=== PATIENT | male | born 1940 | race Caucasian/White ===

== ENCOUNTER 2019-08-31 14:12 | Emergency (ER) | payer MEDICARE, OTHER ==
[~2019-08-31] VITALS: Ht 182.9 cm; Wt 77.1 kg
== END 2019-08-31 16:13 | disposition home or self-care (01) ==
LOC: ED 14:12
DX: S20.411A Abrasion of right back wall of thorax, initial encounter (principal); Z23 Encounter for immunization; V49.9XXA Car occupant (driver) (passenger) injured in unspecified traffic accident, initial encounter
CPT/HCPCS: 36415; 71045; 72170; 80053; 82150; 82550; 83605; 83690; 85025; 86850; 86900; 86901; 90471; 90715; 99284-25; G0480

== ENCOUNTER 2020-08-29 07:29 | Day surgery (SDC) | payer MEDICARE, OTHER ==
[~2020-08-29] VITALS: Ht 180.3 cm; Wt 74.0 kg
[~2020-08-29 07:29] MED LIST: 8 HOUR650 MG; ADULT ASPIRIN R81 MG; COLACE100 MG; COZAAR50 MG; FLOMAX0.4 MG; LIPITOR10 MG; METOPROLOL TART25 MG; ONE DAILY FOR1 EAC1; VITAMIN B COMP1 EACH; VITAMIN C500 M5; XARELTO20 MG
--- NOTE | 2020-08-29 09:39 | NUR ---
08/29/20 0939 Magda Smith 0912 PT ARRIVED IN PACU NON RESPONSIVE TO NOXIOUS STIMULI WITH OPA IN PLACE. 924 PT REACTIVE. OPA REMOVED. TOP DENTURE AND L HEARING AIDE RETURNED TO PT. 929 FALLS BACK TO SLEEP WHEN NOT STIMULATED.
--- NOTE | 2020-08-29 09:59 | NUR ---
0950: PT ARRIVES TO UNIT VIA STRETCHER FROM PACU. PT ALERT AND ORIENTED. DENIES PAIN AND NAUSEA. VSS, RESP EVEN AND UNLABORED. SCDS IN PLACE. ICE WATER AND SNACK PROVIDED. NO NEEDS VOICED, CALL LIGHT WITHIN REACH 1000: TC PLACED TO AND UPDATE PROVIDED. TO RETURN TO HOSPITAL IN ONE HOUR.
--- NOTE | 2020-08-29 10:23 | NUR ---
CONNECTED WITH PT AND THEY ENTERED UNIT. GAVE DIRECTIONS, ALSO GAVE OUTLINE FOR TODAY. PT LIVES IN [place], [place]OVE LAST NIGHT. GAVE BLESSING AND WILL FOLLOW NEEDED
--- NOTE | 2020-08-29 11:01 | NUR ---
1050: PT WATCHES TV COMFORTABLY IN STRETCHER. VSS, RESP EVEN AND UNLABORED. NO PHYSICAL S/S OF DISTRESS AT THIS TIME. DENIES PAIN AND NAUSEA. DURAN ICE WATER AND SNACK WELL. IV CONVERTED TO SL AND PT DANGLES AT THE EDGE OF BED. DURAN WELL, DENIES DIZZINESS AND SOB. AMBULATES TO BR WITH STAND BY ASSISTANCE FROM THIS RN FOR FIRST SUCCESSFUL POSTOP VOID. AMBULATES BACK TO ROOM 12, STEADY GAIT. PT TO DRESS FOR D/C, DENIES NEED FOR ASSISTANCE AT THIS TIME. CALL LIGHT WITHIN REACH
--- NOTE | 2020-08-29 11:17 | NUR ---
1115: SL D/C'D WITH CATH TIP INTACT AND PRESSURE APPLIED TO SITE. PT WAITS FOR TO ARRIVE TO GO OVER D/C INSTRUCTIONS
--- NOTE | 2020-08-29 12:09 | NUR ---
1115: ARRIVES AT THE BEDSIDE. D/C INSTRUCTIONS PROVIDED AND DISCUSSED ORDERED. PATIENT AND VOICE UNDERSTANDING AND DENY QUESTIONS AND CONCERNS AT THIS TIME. 1135: PT WHEELED OFF OF UNIT BY THIS RN. TRANSFERS INTO VEHICLE INDEPENDENTLY. RESP EVEN AND UNLABORED, NO PHYSICAL S/S OF DISTRESS AT THIS TIME
--- NOTE | 2020-09-05 10:41 | OR ---
[facility] [address], [place] [address] Signed DATE OF OPERATION: 08/29/2020 SURGEON: Moses Buckner MD PREOPERATIVE DIAGNOSIS: Hearing loss due to serious otitis media, right ear. POSTOPERATIVE DIAGNOSIS: Hearing loss due to serious otitis media, right ear. PROCEDURE: Right myringotomy and ventilation tube insertion with a T-tube. ANESTHESIA: General, LMA. MACHINE GUIDE BASE WINDER: Jerry. PREOPERATIVE HISTORY: Mr. Tellez is an 80-year-old man with hearing loss, right ear worsened recently from his baseline chronic hearing loss due to serous otitis media. He has had fluid identified in the office and audiogram in temps have shown a conductive hearing loss with flat tympanogram on the right. Left ear is baseline presbycusis. He is taken to the operating room for the above-mentioned procedures. OPERATIVE PROCEDURE AND FINDINGS: After informed consent, the patient was taken to the operating room, placed in the supine position, where general LMA anesthesia was induced. The patient and procedure were verified. The patient was repositioned. Right ear was examined with operating microscope. Eardrum was dull, retracted with a patel middle ear effusion. Anterior-inferior radial myringotomy was made. Effusion suctioned from the middle ear space. T-Tube placed in the myringotomy site. Ofloxacin ophthalmic drops applied to the ear canal, cotton ball to the meatus. The patient tolerated the procedure well, was awakened, extubated, transported to recovery room in good condition. No complications. BLOOD LOSS: Minimal. SPECIMEN: Electronically Signed By: MOSES BUCKNER MD 09/05/20 1041 PATIENT NAME: MARVIN TELLEZ OPERATIVE REPORT DATE OF : 36 REPORT #: [id number] PHYSICIAN: MOSES BUCKNER MD PCP: BESSY ANAND MD REPORT IS CONFIDENTIAL AND NOT TO BE RELEASED WITHOUT AUTHORIZATION [facility] [address] [place] [id number] Signed No specimen. DRAINS: No drains. Moses Buckner MD /MODL /[id number] Copies: ~ Electronically Signed By: MOSES BUCKNER MD 09/05/20 1041 PATIENT NAME: MARVIN TELLEZ OPERATIVE REPORT DATE OF : 38 REPORT #: [id number] PHYSICIAN: MOSES BUCKNER MD PCP: BESSY ANAND MD REPORT IS CONFIDENTIAL AND NOT TO BE RELEASED WITHOUT AUTHORIZATION
== END 2020-08-29 11:35 | disposition home or self-care (01) ==
LOC: OPS 07:29 → DS 07:29 → OPS 09:00 → DS 09:00 → OPS 11:35
PROVIDERS: ATTEND Otolaryngology
PROC: 099500Z Drainage of Right Middle Ear with Drainage Device, Open Approach (ICD-10-PCS; principal; 2020-08-29 09:00)
DX: H65.91 Unspecified nonsuppurative otitis media, right ear (principal); H90.71 Mixed conductive and sensorineural hearing loss, unilateral, right ear, with unrestricted hearing on the contralateral side; I25.10 Atherosclerotic heart disease of native coronary artery without angina pectoris; E78.5 Hyperlipidemia, unspecified; N40.0 Benign prostatic hyperplasia without lower urinary tract symptoms; I10 Essential (primary) hypertension
CPT/HCPCS: 00126; J1100; J2001; J2370; J2405; J2704; J7121

== ENCOUNTER 2021-07-09 14:10 | Emergency (ER) | payer OTHER, MEDICARE ==
[~2021-07-09] VITALS: Ht 180.3 cm; Wt 73.9 kg
== END 2021-07-09 15:17 | disposition home or self-care (01) ==
LOC: ED 14:10
DX: S40.011A Contusion of right shoulder, initial encounter (principal); S64.91XA Injury of unspecified nerve at wrist and hand level of right arm, initial encounter; Z87.891 Personal history of nicotine dependence; W08.XXXA Fall from other furniture, initial encounter
CPT/HCPCS: 73030

== ENCOUNTER 2021-07-19 12:29 | Emergency (ER) | payer MEDICARE, OTHER ==
[~2021-07-19] VITALS: Ht 180.3 cm; Wt 73.9 kg
--- OUTSIDE RECORDS SUMMARY | 2021-07-19 12:32 | XMS ---
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 Tarik VISIT COUNT (12 [address] [facility] [address] [place] [address] TOTAL 6 NOTE: Visits indicate total known visits. ED/C VISIT TRACKING (12 MO.) 07/19/2021 12:29 [facility] [place] TYPE: Emergency COMPLAINT: - R ARM PAIN AND NUMBNESS 07/09/2021 14:11 [facility] [place] TYPE: Emergency COMPLAINT: - FALL, R ARM/SHOULDER INJURY DIAGNOSES: - Injury of unspecified nerve at wrist and hand level of right arm, initial encounter - Fall from other furniture, initial encounter - Pain in right shoulder - Contusion of right shoulder, initial encounter - Personal history of nicotine dependence 06/08/2021 10:30 [facility] - [place] TYPE: Emergency DIAGNOSES: - Occlusion and stenosis of unspecified carotid artery - Presence of aortocoronary bypass graft - Personal history of nicotine dependence - 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 - Paroxysmal atrial fibrillation - Hyperlipidemia, unspecified - Anemia, unspecified - 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 - Atherosclerotic heart disease of [place] coronary artery without angina pectoris 04/18/2021 20:55 [facility] [place] TYPE: Emergency COMPLAINT: - Bleeding wound DIAGNOSES: - Paroxysmal atrial fibrillation - Hyperlipidemia, unspecified - Other group home (current) drug therapy - long-term (current) use of anticoagulants - Presence of aortocoronary bypass graft - Allergy status to sulfonamides - Atherosclerotic heart disease of [place] coronary artery without angina pectoris - Personal history of nicotine dependence - Postprocedural hemorrhage of skin and subcutaneous tissue following other procedure 01/25/2021 08:05 [facility] [place] TYPE: Emergency COMPLAINT: - heart DIAGNOSES: - Occlusion and stenosis of unspecified carotid artery - Gastro-esophageal reflux disease without esophagitis - Atherosclerotic heart disease of [place] coronary artery without angina pectoris - long-term (current) use of anticoagulants - Paroxysmal atrial fibrillation - Benign prostatic hyperplasia without lower urinary tract symptoms - Presence of aortocoronary bypass graft - Other group home (current) drug therapy - Hyperlipidemia, unspecified 07/29/2020 05:47 [facility] [place] TYPE: Emergency COMPLAINT: - Rapid HR DIAGNOSES: - Hyperlipidemia, unspecified - Paroxysmal atrial fibrillation - Presence of aortocoronary bypass graft - Gastro-esophageal reflux disease without esophagitis - Occlusion and stenosis of unspecified carotid artery - Atherosclerotic heart disease of [place] coronary artery without angina pectoris - Other group home (current) drug therapy - Benign prostatic hyperplasia without lower urinary tract symptoms INPATIENT VISIT TRACKING (12 MO.) No inpatient visits to display in this time frame [email or web address]
[2021-07-19] MEDS ORDERED: HYDROCODON-ACE1 EA10 PO (12:43)
[2021-07-19] MEDS ORDERED: PREDNISONE20 MG PO (14:35)
== END 2021-07-19 14:55 | disposition home or self-care (01) ==
LOC: ED 12:29
DX: S54.01XA Injury of ulnar nerve at forearm level, right arm, initial encounter (principal); Z87.891 Personal history of nicotine dependence; Z79.82 Long term (current) use of aspirin; Z79.899 Other long term (current) drug therapy; W19.XXXA Unspecified fall, initial encounter; W22.8XXA Striking against or struck by other objects, initial encounter
CPT/HCPCS: 99283; J7512

== ENCOUNTER 2021-09-14 14:32 | Inpatient (IN) | payer MEDICARE, OTHER ==
[~2021-09-14] VITALS: Ht 180.3 cm; Wt 77.0 kg
[~2021-09-14 14:32] MED LIST changes: -8 HOUR650 MG; +8 HOUR650 MG PO; -ADULT ASPIRIN R81 MG; +ADULT ASPIRIN R81 MG PO; -COZAAR50 MG; +COZAAR50 MG PO; -FLOMAX0.4 MG; +FLOMAX0.4 MG PO; +HYDROCODON-ACE1 EA10 PO; -METOPROLOL TART25 MG; +METOPROLOL TART25 MG PO; -ONE DAILY FOR1 EAC1; +ONE DAILY FOR1 EAC1 PO; +PREDNISONE20 MG PO; -VITAMIN B COMP1 EACH; +VITAMIN B COMP1 EACH PO; -VITAMIN C500 M5; +VITAMIN C500 M5 PO; -XARELTO20 MG; +XARELTO20 MG PO
--- NOTE | 2021-09-14 16:30 | NUR ---
PT ARRIVED VIA [facility]. THREE PERSON TRANSFER FROM STRETCHER TO BED. PT ALERT AND ORIENTED BUT DROWSY AT TIME OF ARRIVAL. SPO2 = 95% ON 3 L NC. REPORT RECEIVED FROM RONY ROGERS AND [employer] CREW.
--- NOTE | 2021-09-14 17:15 | NUR ---
INIITIAL INTAKE ASSESSMENT AND HISTORY COMPLETED. PT ALERT AND ORIENTED, AT TIMES HAS DIFFICULTY ANSWERING QUESTIONS ABOUT MEDICAL HISTORY. PT IN AFIB. HR 110-130S. PT ON 3 L NC. PT HAS SEVERE 4+ LOWER EXTREMITY EDEMA AND GENERALIZED EDEMA. LUNGS SOUND DIFFICULT TO AUSCULTATE. CRACKLES AND DIMINISHED IN BILATERAL BASES. BLOOD PRESSURES IN THE 90-[address] BERNAL IN ROOM AT THIS TIME FOR ASSESSMENT. PLAN OF CARE ESTABLISHED.
--- NOTE | 2021-09-14 18:00 | NUR ---
LASIX AND DIGOXIN GIVEN AT THIS TIME. BLOOD SENT TO LAB AND NEW IV INTIATED BY KEN ZABALA.
--- NOTE | 2021-09-14 18:26 | NUR ---
RECEIVED A PHONE CALL FROM DR BERNAL. PLAN ESTABLISHED TO GIVE VITAMIN K, ONE UNIT OF BLOOD, AND OBTAIN A RUQ ULTRASOUND.
--- NOTE | 2021-09-14 19:36 | NUR ---
RECEIVED REPORT FROM DAY SHIFT, STARTED BLOOD. PT TOLERATING WELL. VSS CALL LIGHT WITHIN REACH WILL CONTINUE TO MONITOR.
--- NOTE | 2021-09-14 20:50 | NUR ---
U/S IN ROOM WITH PT.
--- NOTE | 2021-09-14 21:46 | NUR ---
PT BLOOD TRANSFUSION DONE, TOLERATED WELL. DENIES ANY CONCERNS AT THIS TIME. RESP EVEN AND UNLABORED
--- NOTE | 2021-09-15 00:14 | NUR ---
LAB IN PTS ROOM TO DRAW H AND H.
--- NOTE | 2021-09-15 00:46 | NUR ---
INSPECTOR FINAL ASSEMBLY MECHANICAL NOT ABLE TO DRAW LABS. [facility] LABS WAITING ON LAB RESULTS. WILL CALLL WITH RESULTS AND UPDATE ON AFIB.
--- NOTE | 2021-09-15 01:44 | NUR ---
SPOKE WITH , ORDER FOR LOPRESSOR 5MG IV EVERY 6HRS. GIVEN RATE AT THIS TIME 112 BP 92/78 MAP 84. PT REQUESTING JELLO . RESP EVEN AND UNLABORED. DENIES ANY SOB OR RESP DISTRESS. CALL LIGHT WITHIN REACH WILL CONTINUE TO MONITOR
--- NOTE | 2021-09-15 03:29 | NUR ---
PT RESTING IN BED IN NO ACUTE DISTRESS. PT DENIES ANY SOB, NO CHEST PAIN OR PALPATATIONS. PT REMAINS IN AFIB RATE 100-118. BP 100/66 MAP 74, CALL LIGHT WITHIN REACH WILL CONTINUE TO MONITOR.
--- NOTE | 2021-09-15 05:14 | NUR ---
LAB IN PTS ROOM , PT AWAKE WATCHING TV NO S/SX OF ANY DISTRESS NOTED. CALL LIGHT WITHIN REACH WILL CONTINUE TO MONITOR
--- NOTE | 2021-09-15 06:21 | NUR ---
PT COMPLAINING OF PAIN TO RT ARM. PER PT HE HAS HAD THIS PAIN FOR A SEVERAL MONTHS MEDICATED WITH PRN PAIN MEDS GIVEN. WRAPPED ARM WITH A WARM BLANKET. WILL ADDRESS WITH MD IF PAIN CONTINUES.
--- NOTE | 2021-09-15 06:30 | NUR ---
CALLED MD TO INFORM OF PTS PAIN TO RT ARM. ORDER FOR PO PAIN MEDS. UPDATED MD ON PTS LABS AND RATE. PER MD WILL READJUST PO CARDIAC MEDS. WILL REPOSITION PT AND MEDICATE WITH PRN PAIN MEDS
--- NOTE | 2021-09-15 06:40 | NUR ---
PT CONTINUES TO C/O PAIN. MEDICATED WITH PRN OXY AND REPOSITIONED PT. CALL LIGHT WITH IN REACH WILL CONTINUE TO MONITOR
--- NOTE | 2021-09-15 07:38 | NUR ---
REPORT RECEIVED FROM KEN BELTRE. PT RESTING IN BED WITH EYES CLOSED. RESPIRATIONS EVEN AND UNLABORED. HEART RATE 90'S-110'S. OXYGEN SATURATIONS 90-91% ON 3L O2 BY NC. HEAD OF BED ELEVATED TO 25 DEGREES. BED RAILS UP. CALL LIGHT WITHIN REACH. PT ALLOWED TO REST.
--- NOTE | 2021-09-15 08:26 | NUR ---
MORNING ASSESSMENT AND MEDICAITON DUE. PT CONTINUES RESTING IN BED WITH EYES CLOSED. OXYGEN SATURATION AT 90% ON 3L O2 BY NC. HEAD OF BE ELEVATED TO 33 DEGREES WITH OXYGEN SATURATION IMPROVING TO 93% ON 3L O2 BY NC. PT AWAKENS TO VOICE AND LIGHT TOUCH. SPEECH SLURRED. PT REPORTS HE FEELS "REALLY SLEEPY." PT REPORTS 4/10 PAIN IN RIGHT ARM AND HAND. WHEN ASKED ABOUT HIS PAIN PT STATES "IT'S MUCH BETTER." IVS ASSESSED, WNL. NO S/S OF PHLEBITIS NOTED. BOTH LUMENS OF RIGHT AC IV SITE FLUSHED WITH 5ML NS. ALCOHOL CAPS APPLIED TO ALL CALVES. PT ORIENTED TO PLACE AND DATE BUT IS UNABLE TO RECALL WHY HE IS AT THE HOSPITAL, FALLING ASLEEP BETWEEN CARES AND QUESTIONS. PIN POINT PUPILS NOTED. FACIAL SEMETRY EQUAL ON BOTH SIDES. PT REPORTS HE IS UNABLE TO DIRECTOR OF INTERCOLLEGIATE ATHLETICS WITH RIGHT HAND DUE TO PAIN. STRONG DIRECTOR OF INTERCOLLEGIATE ATHLETICS ON LEFT SIDE. PT NOTED TO MOVE BOTH ARMS ABOVE HEAD INDEPENDANTLY. LUNG SOUNDS CLEAR. HEART TONES IRREGULAR WITH HR 90-110'S. BOUNDING HEART TONES HEARD. +4 PITTING EDEMA NOTED IN BILATERAL FEET AND LOWER EXTREMITIES, EDEMA CONTINUES UP THROUGH THIGHS. +2 PITTING DEPENDANT EDEMA NOTED TO ABDOMEN, GLUTEAL AND SACRAL AREAS. +3 PITTING EDEMA NOTED TO LEFT UPPER ARM. GENERALIZED EDMA NOTED TO RIGHT HAND. LEGS ELEVATED. ARMS ELEVATED ON PILLOWS. PT RESPONDS TO TOUCH IN ALL EXREMITIES. BOWEL TONES HEARD. ABDOMEN SOFT AND MILDY DISTENDED. PT DENIES TENDERNESS TO ABDOMEN. 900ML CLEAR YELLOW URINE REMOVED FROM PICHARDO CATHETER. SMALL AMMOUNT OF RED DRAINAGE NOTED AT MEATUS AND CATHETER INCERTION SITE. LEG AND CATEHTER CLEANING PERFORMED PER PROTOCOL. MEDICATION GIVEN. PT ABLE TO TAKE PILL WITH SMALL SIP OF WATER. PT DRIFTS QUICKLY BACK TO SLEEP. HEAD OF BED REMAINS ELEVATED TO 33 DEGREES. BED RAILS UP. CALL LIGHT WITHIN REACH.
--- NOTE | 2021-09-15 09:38 | NUR ---
MEDICATION DUE. THIS RN TO ROOM TO CHECK ON PT. PT CONTINUES RESTING WITH EYES CLOSED. PT AWAKENS TO VOICE AND LIGHT TOUCH. VITAL SIGNS STABLE, BLOOD PRESSURE CONTINUES TO BE 90'S/60'S, MD AWARE. HEART RATE 100-120'S. MEDICATION GIVEN. PT REPOSITIONED TO LEFT SIDE, SUPPORTED WITH PILLOWS. HEEL PROTECTORS APPLIED. PT RESPONDS APPROPRIATLY TO QUESTIONS AND INTERVENTIONS. HEAD OF BED ELEVATED TO 30 DEGREES. BED RAILS UP. CALL LIGHT WITHIN REACH.
--- NOTE | 2021-09-15 10:08 | NUR ---
THIS RN TO ROOM TO CHECK ON PT. PT CONTINUES RESTING WITH EYES CLOSED. RESPIRATIONS EVEN AND UNALBORED. OXGYEN TUBING FOUND OFF OF PT WITH OXGYEN SATURATION OF 88%. TUBING REPLACED AND OXGYEN SATURATION CLIMBS TO 98%. PT WEANED TO 2L O2 BY NC. NO ADDITONAL NEEDS AT THIS TIME. CALL LIGHT WITHIN REACH. BED RAILS UP.
--- NOTE | 2021-09-15 10:58 | NUR ---
THIS RN TO ROOM TO CHECK ON PT. PT REPORTS 10/10 BACK PAIN AND RIGHT ARM PAIN. PT BOOSTED IN BED AND REPOSITIONED TO RIGHT SIDE, SUPPORTED WITH PILLOWS. PT REPORTS FEELING HUNGRY AND READY FOR BREAKFAST. HEAD OF BED ELEVATED TO 44 DEGREES. PT CONTINUES TO CRY OUT "OH, OH" AND REPORT BACK PAIN. PT UNABLE TO TOLERATE LYING ON RIGHT SIDE. PILLOWS REMOVED AND PT LYING IN SEMI FOLWER POSITION, WITH HEAD OF BED AT 25 DEGREES. PT REPORTS "THAT'S BETTER." VITAL SIGNS STABLE. PT EATS TWO BITS OF BREAKFAST AND THEN STATES "OK, I'M DONE." PT RETURNES TO RESTING WITH EYES CLOSED. RESPIRATIONS EVEN AND UNLABORED. BED RAILS UP. CALL LIGHT WITHIN REACH.
--- NOTE | 2021-09-15 12:14 | NUR ---
NOON ASSESSMENT AND MEDICATION DUE. DR. BERNAL TO BEDSIDE FOR ROUNDS. NEW ORDERS PLACED. PT CONFUSED AT TIMES. DOES NOT REMEMBER TALKING WITH DR BERNAL 10 MINUTES LATER. PT IS ABLE TO STATE CORRECTLY WHERE HE IS AT, THE DATE AND TIME OF DAY. PT DISORIENTED TO EVENTS AND REASONS FOR HOSPITAL STAY. PT FOLLOWS DIRECTIONS. PT REPORTS 5/10 PAIN IN LOWER BACK AND RIGHT ARM. PT REQUESTS A PAIN PILL. LIDOCANE PATCH APPLIED. PAIN MEDICATIONS GIVEN (SEE MAR) IN ANTICIPATION OF CT SCAN. PT DROWSY. PUPLIS NOW 2MM EQUAL AND REACTIVE TO LIGHT. WEAK MILLER KILN DRIED SALT STRENGTH REMAINS IN RIGHT HAND/ARM. PT REPORTS WEAKNESS IN LEGS. LUNG SOUNDS REMAIN CLEAR TO DEMINISHED. PT REMAINS ON 3L O2 BY NC WITH OXGYEN SATURATIONS 90-94%. NO COUGH NOTED. PT SWALLOWS JUICE/CONTRAST WITH NO COUGHING, CHOAKING OR THROAT CLEARING. AFIB RYTHEM CONTINUES WITH HR 90-120'S. EDEMA CONTINUES, UNCHANGED. ARMS AND LEGS ELEVATED. BOWEL TONES HYPOACTIVE. ABDOMEN SOFT AND NONTENDER. ADDITIONAL 850ML YELLOW URINE REMOVED FROM CATHETER BAG. NO ADDITONAL RED DRAINAGE NOTED AT MEATUS OR ARROUND CATHETER INCERTION SITE. NO ADDITIONAL NEEDS AT THIS TIME. CALL LIGHT WITHIN REACH. BED RAILS UP. HEAD OF BED ELEVATED TO 30 DEGREES.
--- NOTE | 2021-09-15 12:47 | NUR ---
IMAGING CALLED AND, TECHNITIAN, STATES PT WILL NEED AN ADDITIONAL 15ML ORAL CONTRAST AT 1315 PRIOR TO SCAN AT 1415. ORDER PLACED.
--- NOTE | 2021-09-15 13:08 | NUR ---
MEDICATION DUE. RIGHT AC IV ASSESSED, NO S/S OF PHLEBITIS NOTED. BLOOD RETURN NOTED. VANCO STARTED (SEE MAR), INFUSING THROUGH LEFT AC IV SITE. PT RESTING WITH EYES CLOSED. PT AWAKENS TO VOICE AND LIGHT TOUCH. PT TAKES SIPS OF JUICE WITH CONTRAST AND FALLS QUICKLY BACK TO SLEEP. PT REPORTS HUNGER FOR LUNCH BUT IS UNABLE TO STAY AWAKE LONG ENOUGH TO TAKE A BITE OF FOOD. VITALS SIGNS STABLE. HEART RATE REMAINS IN THE 90-120'S. NO ADDITONAL NEEDS AT THIS TIME. CALL LIGHT WITHIN REACH. BED RAILS UP.
--- NOTE | 2021-09-15 14:45 | NUR ---
PTS BHAKTI ARRIVED TO BEDSIDE, BHAKTI UPDATED ON PLAN OF CARE AND STATES HER QUESTIONS HAVE BEEN ANSWERED. PT REMAINS AT CT SCAN, AWAITING PTS' RETURN.
--- NOTE | 2021-09-15 15:22 | NUR ---
PATIENT TRANSPORTED TO CT. TOLERATED CT SCAN MODERATELY WELL BUT EXPRESSED DISCOMFORT DUE TO POSITIONING ON THE CT TABLE. FULL LINEN CHANGE OF BED AT THIS TIME. PATIENT RETURNED TO ROOM AND TURNED TO LEFT SIDE. AT THE BEDSIDE.
--- NOTE | 2021-09-15 15:41 | NUR ---
AFTERNOON ASSESSMENT AND MEDICATION DUE. PT HAS RETURNED FROM CT SCAN. PT RESTING IN BED, LINES CHANGED WHILE PT WAS AT CT SCAN. PT POSITIONED ON LEFT SIDE, SUPPORTED WITH PILLOWS. PT VERY DROWSY, DOES NOT KEEP EYES OPEN DURING ASSESSMENT. PT ANSWERS QUESTIONS CONCERNING WHERE HE IS, MONTH AND YEAR. PT REPORTS 10/10 PAIN AND THEN IMMIDATLY FALLS BACK TO SLEEP. PT REMAINS ON 3L O2 BY PA WITH OXGYEN SATURATION OF 93% AND RR OF 15-18. PTS AT BEDSIDE AND CONTINUES TO BE UPDATED ON PLAN OF CARE. PT SATES THEY HAVE BEEN SEEKING MEDICAL ATTENTION "FOR MONTHS." PTS BHAKTI STATES PTS HEALTH STARTED TO DECLINE ARROUND THE END OF JUNE AFTER A FALL "AROUND THE June." PT VERY INTOLERANT OF ANY MOVEMENT OR POSITION CHANGE. ENEMA NOT DONE AT THIS TIME RELATED TO PTS PAIN AND INABILITY TO TOLEARTE POSITION CHANGES. IV VANCO COMPLETE. IV SALINE LOCKED AT THIS TIME. PTS SPEECH GARBLED, PTS HAS DIFFICULTY UNDERSTANDING PT. EDEMA CONTINUES THROUGHOUT LEGS AND DEPENDANT AREAS WELL UPPER ARMS AND RIGHT HAND, UNCHANGED. PT REMAINS IN AFIB RYTHEM WITH HR NOW IN THE 80-110. ADDITONAL 900ML OF URINE REMOVED FROM PICHARDO CATHETER. NO NEW RED DRAINAGE NOTED FROM MEATUS. ABDOMEN SOFT AND NON TENDER. ACTIVE BOWEL TONES HEARD, MILD DISTENTION NOTED. PT DECLINES REPOSITIOINING STATING "I'M TIRED OF YOU GUYS HURTING ME AND CUTTING ME TO PIECES." PT ALLOWED TO REMAIN IN LEFT SIDE LYING POSITION.
--- NOTE | 2021-09-15 16:52 | NUR ---
SOAP SUDDS WATER ENEMA GIVEN TO PT PER PROTOCOL. PT ABLE TO HOLD IN ~500ML FOR ~15 MINUTES. PT TOELRATED PROCEEDURE WELL. PT HAS ~100ML BROWN FLUID RETURN. ALYCE CARE DONE. DEPENDS CHANGED. PTS STATES PT WAS ALSO GIVEN AN ENEMA IN [place] AND "THEY COULDN'T BELIEVE WHAT CAME OUT. IT WAS A LOT OF POOP." PT REPOSITIONED TO SUPINE WITH HEAD OF BED ELEVATED TO 25 DEGREES. PT UNABLE TO STAY AWAKE LONG ENOUGH TO EAT DINNER. CLEAR ENSURE PROVIDED. HEEL PROTETORS IN PLACE. BED RAILS UP. CALL LIGHT WITHIN REACH.
--- NOTE | 2021-09-15 17:40 | NUR ---
THIS RN TO ROOM TO CHECK ON PT. PT RESTING IN BED WITH EYES CLOSED. PT OPENS EYES TO MOVEMENT IN THE ROOM. CHOCOLATE ENSURE MILKSHAKE PROVIDED AND PT ASSISTED WITH DRINKING MILKSHAKE. KYLEE SANDHU EMPITED OF 950ML CLEAR YELLOW URINE. PT REPORTS BACK PAIN HAS IMPROVED NOW AT 7/10 AND. PT DECLINES REPOSITIONING AND STATES "I'M JUST FINE LIKE THIS." PTS REMAINS AT BEDSIDE. NO ADDITONAL REQUESTS OR COMPLAINTS. CALL LIGHT WITHIN REACH. BED RAILS UP.
--- NOTE | 2021-09-15 18:14 | NUR ---
PT FOR AFIB RVR AND MULTIPLE OTHER COMPLAINTS/CONDITIONS. PT REMAINS ON BED REST THIS SHIFT. PT VERY DROWSY THROUGHOUT SHIFT AND UNABLE TO DO MUCH MOVEMENT WITHOUT SEVERE PAIN. PT REPOSITIONED ABLE. PT NOT EATING THIS SHIFT, FALLS ASLEEP QUICKLY AND DOESN'T HAVE THE ENERGY TO EAT. ENSURE MILKSHAKES AND CLEAR ENSURE PROVIDED WHICH PT STATES HE ENJOYS. ADJUSTMENTS MADE TO CARDIAC MEDICATIONS TO CONTROL HEART RATE. HEART RATE REMAINS 80-120'S THROUGHOUT SHIFT IN AFIB RYTHEM. PT REMAINS ON 3L O2 BY NC WITH OXGYEN SATURATIONS IN THE LOW 90'S. IV VANCO STARTED GIVEN URINALASIS RESULTS. MULTIPLE CT SCANS WITH CONTRAST PERFORMED, DISCUSSION ABOUT RESTULTS WITH PT AND FAMILY PENDING. IV LASIX GIVEN, PICHARDO CATHETER IN PLACE, LARGE QUANTITES OF URINE NOTED. SEVERE EDEMA NOTED DEPENDANTLY AND IN ALL EXTREMITIES. WEAKEN MACROECONOMICS PROFESSOR STRENGHT TO RIGHT ARM NOTED. PTS AT BEDSIDE ALL AFTERNOON, PT EXPECTING FAMILY TOMORROW. PT DOES NOT USE CALL LIGHT.
--- NOTE | 2021-09-15 18:33 | NUR ---
THIS RN TO ROOM TO CHECK ON PT. PT REQEUSTS HIS PILLOWS BE ADJUSTED. PILLOWS ADJUSTED. PT REPORTS 6/10 PAIN IN BACK/RIGHT ARM AND NECK AND REQUESTS PAIN MEDICATION, SEE MAR FOR MEDICAITON GIVEN. PTS STATES SHE AND HER DAUGHTER WILL BE HERE IN THE MORNING AT AROUND 1000. PT ASSISTED WITH TAKING SIPS OF ENSURE AND WATER. PT DENIES ADDITIONAL REQUESTS OR COMPLAINTS. CALL LIGHT WIHTIN REACH. BED RAILS UP.
--- NOTE | 2021-09-15 20:00 | NUR ---
RECEIVED REPORT FROM DAY SHIFT RN. PT LAYING IN BED IN NO ACUTE DISTRESS. PT RESTING IN BED. DAY SHIFT NURSE GAVE PRN PAIN MEDS. PT SLEEPY, DR BERNAL , GAVE NEW ORDERS. CALL LIGHT WITHIN REACH WILL CONTINUE TO MONITOR.
--- NOTE | 2021-09-15 23:09 | NUR ---
PT DROWSY BUT EASILY AROUSABLE DENIES ANY CONCERNS. PTS RATE CONTROLED AT THIS TIME. WILL TURN AND MEDICATE WITH PRN PAIN TOLERATED. WILL CONTINUE TO MONITOR
--- NOTE | 2021-09-16 00:12 | NUR ---
REPOSITIONED PT AND CLEANED UP . PT COMPLAINING ABOUT PAIN WITH MOVEMENT. MEDICATED WITH PRN PAIN MEDS. PT RATE 100-120. RESP EVEN AND UNLABORED . CALL LIGHT WITHN REACH WILL CONTINUE TO MONITOR
--- NOTE | 2021-09-16 02:12 | NUR ---
PT SLEEPING IN BED WIT EYES CLOSED IN NO ACUTE DISTRESS. PT RESP EVEN AND UNLABORED. VSS RATE CONTROLLED AT THIS TIME 90-100. CALL LIGHT WITHIN REACH WILL CONTINUE TO MONITOR.
[2021-09-16] MEDS ORDERED: CARDIZEM CD240 MG PO (03:07)
[2021-09-16] MEDS ORDERED: CYMBALTA30 MG PO (03:07)
[2021-09-16] MEDS ORDERED: PANTOPRAZOLE SO40 MG PO (03:09)
[2021-09-16] MEDS ORDERED: NEURONTIN300 MG PO (04:07)
--- NOTE | 2021-09-16 04:11 | NUR ---
PT SLEEPING IN BED IN NO ACUTRE DISTRESS. PT RESP EVEN AND UNLABORED. RATES REAMINS AT 90-100 AT THIS TIME. TURNING TOLERATED . CALL LIGHT WITHIN REACH WILL CONTINUE TO MONITOR.
--- NOTE | 2021-09-16 07:37 | NUR ---
REPORT RECEIVED FROM KEN BELTRE. PT RESTING IN BED WITH EYES CLOSED. RESPIRAITONS EVEN AND UNLABORED, RR OF 14. OXGYEN SATURATION OF 94% ON 3L O2 BY NC. HEAD OF BED ELEVATD TO 20 DEGREES. BED RAILS UP. CALL LIGHT WITHIN REACH. PT ALLWOED TO REST.
--- NOTE | 2021-09-16 08:30 | NUR ---
BREAKFAST DELIVERED TO PT. PT SITTING UP IN BED WITH HEAD OF BED ELEVATED TO 40 DEGREES FOR BREAKFAST. PT AWAKE AND ALERT AND OREINTED. PT REPORTS 8/10 BACK/NECK AND RIGTH ARM PAIN. SEE MAR FOR MEDIATION GIVEN. LIDOCANE PATCH APPLIED. MORNING MEDICATIONS GIVEN. PT FEEDING SELF. NO ADDITIONAL NEEDS AT THIS TIME. CALL LIGHT WITHIN REACH. BED RAILS UP.
--- NOTE | 2021-09-16 09:00 | NUR ---
MORNING ASSESSMENT DUE. PT FINISHED WITH BREAKFAST. TOELRATED SMALL AMOUNT. CLEAR ENSURE PROVIDED PER PT REQUEST. PT REPORTS BACK/NECK AND RIGHT ARM PAIN CONTINUE AT 8/10. PT REPORTS FEELIGN "VERY TIRED" AND REQUESTS TIME FOR A NAP. PT ORIENTED TO ALL BUT OCCATIONALY CONFUSED ABOUT EVENTS. PT ABLE TO REPEAT BACK INFORMATION AND FOLLOW DIRECTIONS. OPIOID PAIN MEDICATION HELD SO PT CAN REMAIN ALERT AND OREINTED FOR DISCUSSION WITH FAMILY AND MD THIS MORNING. IV LINES ASSESSED, LEFT AC IV SITE FOUND TO BE KINKED, DRESSING REMOVED, LINE STRAIGHTENED. NEW DRESSING APPLIED PER PROTOCOL. IV FLUIDS WELL, NO S/S/ OF PHLBEITIS NOTED. BOTH LUMENS FLUSHED AND SALIEN LOCKED PER PROTOCOL. IV ABX COMPLETE. LEFT FORARM IV ISTE FLUSHED AND SALINE LOCKED PER PROTOCOL, ALOCHOL CAPS APPLIED. NORMAL SWITCH CREW SUPERVISOR STRENGTH NOTED IN LEFT ARM. GROSS MOVEMENT NOTED IN RIGHT ARM. LEGS WEAK. PT ALBE TO MOVE TOES AND BED AT KNEES. SIGNIFICAT INCREASE IN PAIN WITH THESE MOVEMENTS. LUNG SOUNDS CLEAR IN UPPER LOBES, DEMINISED IN BASES. PT TOELRATING 3L O2 BY NC WITH OXGYEN SATURATIONS ABOVE 94%. HEART RATE REMAINS IN AFIB RYTHEM ON MONITOR WITH RATE OF 80-110. EDEMA TO LOWER LEGS IMPROVING, NOW +2. CONTINUES UP THROUGH UPPER LEGS, SACRAM AND OTHER DEPENDANT AREAS. LEFT UPPER ARM CONTINUES TO HAVE +3 PITTING EDEMA. RIGHT HAND CONTINUES TO HAV GENERALIZED SWELLING, ALSO PRESENT IN RIGHT UPPER ARM. PT RESPONDS TO TOUCH IN ALL EXTREMITIES IMPLYING SENSATION IS INTACT. ABOMDEN SOFT AND NON TENDER. BOWEL TONES ACTIVE. NO BLOOD NOTED FORM MEATUS. CATHETER DRINAING CLEAR YELLOW URINE. PT DRIFTS BACK TO SLEEP DURING CARES. RESTING ON BACK WITH EYES CLOSED. HEAD OF BED ELEVATED TO 20 DEGREES. BED RAILS UP. CALL LIGHT WITHIN REACH.
--- NOTE | 2021-09-16 09:39 | NUR ---
THIS RN TO ROOM TO CHECK ON PT. PT RESTING WITH EYES CLOSE. RESPIRATIONS EVEN AND UNLABORED. RR OF 16 WITH OXGYEN SATURATIONS AT 98% ON 3L O2 BY NC. BED RAILS UP. CALL LIGHT WITHIN REACH PT ALLOWED TO REST.
--- NOTE | 2021-09-16 10:23 | NUR ---
MEDICATION DUE. THIS RN TO ROOM. PT RESTING IN BED, AWAKE AND ALERT. MEDICATION GIVEN. VITAL SIGNS STABLE. FAMILY ARRIVED TO BEDSIDE, AND DAUGHTER. FAMILY UPDATED. DR. BERNAL INFORMED THAT FAMILY HAS ARRIVED. NO ADDIITONAL NEEDS AT THIS TIME. CALL LIGHT WITHIN REACH. BED RAILS UP.
--- NOTE | 2021-09-16 11:05 | NUR ---
THIS RN TO ROOM TO WITH DR. BERNAL FOR ROUNDS. CARE COMFERENCE HELD WITH DR. BERNAL, THIS RN , PTS , PT AND PTS DAUGHTER. PT AND FAMILY VERBALIZE UNDERSTANDING OF CONDITION, DIANOSIS, AND PLAN OF CARE. FAMILY STATES THEIR QUESITONS HAVE BEEN ANSWERED FOR NOW AND THEY WILL CONSIDER THINKING ABOUT FUTURE OPTIONS. PT AND FAMILY ALSO MENTION HOME STRESS TO THIS RN AND MD REGARDING THE RECENT SUICIDE OF PTS SON. FAMILY INVOLVED WITH DISCUSSION AND CARES. CHELITA NICOLE DISCUSSED WITH PT. PT AND FAMILY PROVIDE A COPY OF HIS ADVANCED DIRECTIVE. COPY MADE AND PLACED IN PTS CHART. PT REPORT 6/10 PAIN IN BACK/NECK AND RIGHT ARM. PT DECLINES PAIN MEDICATION AT THIS TIME. PT AND FAMILY GIVEN TIME TO TALK AND DISCUSS INFORMATION. NO ADDTIONAL NEEDS. BED RAILS UP. CALL LIGHT WIHTIN REACH.
--- NOTE | 2021-09-16 12:29 | NUR ---
NOON ASSESSMENT AND MEDICAITON DUE. DIGOXIN DOSE CLARIFIED WITH DR. BERNAL WHO STATES THAT 250MCG DOSE WAS NOT MEANT TO START UNTIL FRIDAY. 125MCG DOES TO BE GIVEN NOW. PHARMACY CALLED AND SCHEDULING, DOSING CLARIFIED. 250MCG DOES HELD, 125MCG DOES GIVEN. PT REPORTS 7/10 PAIN IN BACK/NECK AND RIGHT ARM. PT REQUESTS PAIN MEDICATION, SEE MAR FOR MEDICATION GIVEN. PT DENIES NAUSE. PT WAS ABLE TO TOELRAT ~60% OF LUNCH AND DRANK A FULL CLEAR ENSURE. ADDITIONAL ENSURE PROVIDED. FAMILY DELIVERED A LATTE FOR PT, PT SIPPING ON LATTE, NO ASSISTANCE NEEDED. PT REMAINS ALERT AND ORIENTED TO ALL. ANASTASIIA MOVEMENT ONLY TO RIGHT ARM. LUNGS SOUNDS REMAIN CLAER. HEART REMAINS IN AFIB RYTHEM, HR 90-120'S. EDEMA IMPROVING, NOW +2 IN FEET AND BLE. EDEMA CONTINUES TO GO UP THROUGH ABDOMEN AND DEPENDANT AREAS. PT DECLINES REPOSITOINING REPORTING IT IS TOO PAINFUL. SWELLING IMPROVING TO RIGHT HAND WELL. ASSESSMENT OTHERWISE UNCHANGED. PT VISITING WITH FAMILY, BOOSTED IN BED AND HEAD OF BED ELEVATED TO 38 DEGREES PER PT REQUEST. NO ADDITONAL NEES AT THIS TIME. CALL LIGHT WITHIN REACH. BED RAILS UP.
--- NOTE | 2021-09-16 13:36 | NUR ---
MEDICAITON DUE. THIS RN TO ROOM. PT RESTING WITH EYES CLOSED. RESPRIATIONS EVEN AND UNLABORED. PT TOELRATING 3L O2 BY NC WITH OXGYEN SATURATION ABOVE 94%. IV'S ASSESSED, WNL, NO S/S/ OF PHLEBITIS NOTED. IV ABX STARTED. PT CONTINUES RESTING WITH EYES CLOSED. BED RAILS UP. CALL LIGHT WITHIN REACH. FAMILY AT BEDSIDE.
--- NOTE | 2021-09-16 14:35 | NUR ---
THIS RN TO ROOM TO CHECK ON PT. PT RESTING WITH EYES CLOSED, RESPIRATIONS EVEN AND UNLABORED. PTS FAMILY LEAVING FOR THE AFTERNOON TO RETURN THIS EVENING. PT ALLOWED TO REST. CALL LIGHT WITHIN REACH. BED RAILS UP.
--- NOTE | 2021-09-16 14:55 | NUR ---
IV PUMP ALARMING, VANCO INFUSION COMPLETE. IV ASSESSED, WNL. NO S/S OF PHLEBITIS NOTED. IV FLUSHED AND SALINE LOCKED PER PROTOCOL. ALCOHOL CAP APPLIED. PT CONTINUES RESTING WITH EYES CLOSED. RESPIRATIONS EVEN AND UNLABORED. HEAD OF BED ELEVATED TO 30 DEGREES. BED RAILS UP. CALL LIGHT WITHIN REACH.
--- NOTE | 2021-09-16 15:08 | NUR ---
PT HERE FOR AFIB RVR. PT REMAINS ON BED REST THIS SHIFT, TOO PAINFULL AND WEAK TO GET OUT OF BED. PT TOELRATING 2GM SODIUM DIET WITH MINIMAL APPITITE, ENSURE PROVIDED. HEART RATE 80-120'S THIS SHIFT WITH ADJUSTMENTS TO MEDICATIONS MADE. AFIB RYTHEM CONTINUES. PT REMAINS ON 3L O2 BY OH WITH OXGYEN SATUTRATIONS ABOVE 92%. CARE CONFERENCE HELD WITH PT, PTS AND DAUGHTER THIS SHIFT REGARDING CT SCAN RESULTS AND PLAN OF CARE. PT CONTINUES TO HAVE PAIN, CONTROLED WITH OXYCODONE, TYLENOL AND LIDOCANE PATCH. PICHARDO CATHETER IN PLACE, IV LASIX GIVEN, WITH GOOD RESULTS. PT DECLINES REPOSITIONING THIS SHIFT RELATE TO PAIN. EDEMA IMPROVING. PT AFEBRIAL SO FAR THIS SHIFT. PT DOES NOT USE CALL LIGHT. FAMILY AT BEDSIDE FOR MOST OF SHIFT.
--- NOTE | 2021-09-16 15:38 | NUR ---
THIS RN TO ROOM TO CHECK ON PT. PT CONTINUES RESTING WITH EYES CLOSED. RESPRATIONS EVEN AND UNLABORED. RR 18. HEART RATE 90-110'S. PT ALLOWED TO REST UNDESTURBED. BED RAILS UP. CALL LIGHT WITHIN REACH. HEAD OF BED REMAINS ELEVATED TO 30 DEGREES.
--- NOTE | 2021-09-16 17:00 | NUR ---
AFTERNOON ASSESSMENT AND MEDICATION DUE. PT CONTINUES RESTING IN BED WITH EYES CLOSED. RESPIRATIONS EVEN AND UNLABORED. PT AWAKENS TO VOICE AND LIGHT TOUCH. PT REPORTS FEELING COMFROTABLE BUT ALSO REPORTS 7/10 PAIN. PT REQUESTS A PAIN PILL. SEE MAR FOR MEDICATION GIVEN. PT BOOSTED IN BED AND HEAD OF BED ELEVATED TO 35 DEGREES TO SWALLOW MEDICAITONS. PT DECLIENS DINNER STATING HE WOULD "RATHER SLEEP." PT REMAINS OREINTED TO ALL AND ABLE TO RECALL EVENTS OF TODAY. STRENGTH UNCHANGED. PT CONTINUES TO DECLIEN REPOSITIONING RELATED TO PAIN. PT STATES "I'M JUST COMFORTABLE LIKE THIS." PT REMAINS IN SEMIFOWLER POSITION WITH HEAD OF BE ELEVATED TO 34 DEGREES. LUNG SOUNDS CLEAR. PT REMAINS ON 3L O2 BY NC WITH OXYGEN SATURATIONS ABOVE 94%. CARDIAC MONITORING CONTINUES TO SHOW AFIB RYTHEM WITH HEART RATE 90-110'S. +2-3 PITTING EDEMA REMAINS TO FEET AND BLE. WELL +3 PITTING EDMEA TO LEFT UPPER ARM. GENERALIZED EDMEA TO RIGHT HAND IMPROVING. GENERALIZED DEPENDANT EDEMA CONTINUES AT +2. IV LASIX EFFECTIVE WITH LARGE AMOUNTS OF CLEAR LIGHT YELLOW URINE NOTED IN PICHARDO CATHETER. ABDOMEN REMAINS SOFT AND NONTENDER, BOWEL TONES ACTIVE, MILD DISTENTION CONTINUES. CATHETER CARE DONE. NO ADDITIONAL BLOOD OR DRAINGE NOTED AT MEATUS. PT DRIFTS QUICKLY BACK TO RESTING WITH EYES CLOSED AFTER CARES ARE COMPLETE. WARM BLANKETS PROVIDED. BED RAILS UP. CALL LIGHT WITHIN REACH.
--- NOTE | 2021-09-16 17:46 | NUR ---
THIS RN TO ROOM TO CHECK ON PT. PT CONTINUES RESTING WITH EYES CLOSED, RESPIRATIONS EVEN AND UNLABORED. HEART RATE 90-110. NO ADDITIONAL NEEDS AT THIS TIME. BED RAILS UP. CALL LIGHT WITHIN REACH.
--- NOTE | 2021-09-16 18:21 | NUR ---
PUMP ALARMING, IV CEFEPIME INFUSION AND FLUSH COMPLETE. IV ASSESSED, WNL. NO S/S OF PHLEBITIS NOTED. IV FLUISED AND SALINE LOCKED, ALCOHOL CAP APPLIED. PICHARDO CATEHTER EMPTIED OF 650ML CLEAR YELLOW URINE. PT CONTINUES RESTING WITH EYES CLOSED DURING CARES. RESPIRATIONS EVEN AND UNLABORED. BED RAILS UP. HEAD OF BED ELEVATED TO 36 DEGREES. CALL LIGHT WITHIN REACH.
--- NOTE | 2021-09-16 19:43 | NUR ---
RECEIVED REPORT FROM DAY SHIFT . PT RESTING IN BED IN NO ACUTE DISRTESS. AND DAUGHTER AT BEDSIDE AT THIS TIME. VSS RATE CONTROLED AT 80-90. WILL TURN TOLERATED AND MEDICATED WITH PRN MEDS. CALL LIGT WITHIN REACH WILL CONTINUE TO MONITOR.
--- NOTE | 2021-09-16 23:08 | NUR ---
PT SLEEPING AT THIS TIME. VSS RATES CONTROLLED 90-100. NO S/SX OF ANY DISTRESS NOTED. CALL LIGHT WITHIN REACH WILL CONTINUE TO MONITOR
--- NOTE | 2021-09-17 01:53 | NUR ---
PT LAYING IN BED IN NO ACUTE DISTRESS, PT RESP EVEN AND UNLABORED. VSS, RATE 90-100. CALL LIGHT WITHIN REACH WILL CONTINUE TO MONITOR
--- NOTE | 2021-09-17 03:08 | NUR ---
PT AWAKE WATCHING TV, PT DENIES ANY PAIN AT THIS TIME. REPORTS FEELING COLD, REPOSTITIONED TOLERATED AND COVERED PT UP WOTH WARM BLANKET . TOLERATED PO BETA AMANUEL . CALL LIGHT WITHIN REACH WILL CONTINUE TO MONITOR
--- NOTE | 2021-09-17 04:34 | NUR ---
PT RESTING IN BED IN NO ACUTE DISTRESS . PT RESP EVEN AND UNLABORED. CALL LIGHT, REPORSITIONING TOLERATED. CALL LIGHT WITHIN REACH WILL CONTINUE TO MONITOR.
--- NOTE | 2021-09-17 09:24 | NUR ---
PATIENT RESTING IN BED. DROWSY BUT EASILY ARROUSED. LUNGS CLEAR ON 3L OXYGEN VIA NASAL CANULA. PAIN WITH REPOSITIONING. RATES PAIN 10/10. PRN PAIN MEDS GIVEN. PICHARDO DRAINING YELLOW URINE. IV'S SALINE LOCKED. HRATE IRREGULAR AND AFIB IN THE 100-120'S.
--- NOTE | 2021-09-17 10:24 | NUR ---
TO CCU, SPOKE WITH CALDERON ROGERS. PER RN PATIENT HAS A DIFFICULT TIME ANSWERING QUESTIONS AT THIS TIME. CALDERON ROGERS BELIEVED THAT PATIENTS AND DAUGHTER ARE TO RETURN TODAY FOR CARE CONFERENCE REGARDING FURTHER TREATMENT OF METASTATIC CA. WILL COMPLETE ASSESSMENT AND DISCUSS FURTHER NEEDS WITH FAMILY LATER TODAY.
--- NOTE | 2021-09-17 10:38 | NUR ---
RECVD CALL FROM DR. BERNAL TO DISCUSSED DISCHARGE. DR. BERNAL STATES HE SPOKE WITH THE PATIENT FAMILY YESTERDAY AND WOULD LIKE CASE MANAGEMENT TO CONTACT [facility] FOR BED AVAILABILTY. LEFT MESSAGE WITH GIL IN ADMISSIONS AT [facility] TO CONFIRM BED AVAILABILITY.
--- NOTE | 2021-09-17 10:39 | NUR ---
MED RECORDS REQUESTED FROM [facility] AT THIS TIME.
--- NOTE | 2021-09-17 11:13 | NUR ---
MD ROUNDED. UPDATED ON ELECTORLYTE LEVELS; REPLACEMENT ORDERED.
--- NOTE | 2021-09-17 11:45 | NUR ---
AND DAUGHTER AT BEDSIDE. CASE MANAGEMENT CALLED TO ROOM TO DISCUSS PLAN OF CARE AND TRANSITIONING TO HOSPICE.
--- NOTE | 2021-09-17 11:45 | NUR ---
INTO PATIENTS ROOM, KRISTIAN AND DAUGHTER WILMAN AT THE BEDSIDE. PATIENT RESPONSIVE TO VOICE. DISCUSSED THE CARE CONFERENCE WITH DR. BERNAL ON 09/17/21. KRISTIAN AND WILMAN BOTH AGREE THAT THE PATIENT WOULD PREFER TO PURSUE HOSPICE/COMFORT CARE AT THIS TIME. UNFORTUNATLY KRISTIAN FEELS THAT SHE WOULD BE ABLE TO PROVIDE 24 HOUR CARE FOR THE PATIENT AT HOME SINCE IT HAS BEEN A STRUGGLE FOR HER TO CARE FOR THE PATIENT IN THE RECENT DAYS. I ADVISED FAMILY THAT I WILL REACH OUT TO [facility] TO SEE WHAT OPTIONS ARE AVAILABLE FOR THEM AT THIS TIME. DISCUSSED OPTIONS OF RETIREMENT PLACEMENT. PATIENT AND DAUGHTER ALSO REQUEST HOLDING PAIN MEDICATION THIS AFTERNOON TO ATTEMPT TO DISCUSS THESE DECISIONS WITH THE PATIENT. NOTIFIED RN OF REQUEST. WOULD ALSO LIKE TO DISCUSS CHANGING THE PATIENT ADVANCED DIRECTIVES IN THE FUTURE. WILL CONSULT FURTHER WITH CASE MANAGEMENT TEAM, MD AND OUTSIDE SERVICES TO EXPLORE OPTIONS FOR DISCHARGE. WILL UPDATE PATIENT AND FAMILY SOON INFORMATION IS AVAILABLE.
--- NOTE | 2021-09-17 12:10 | NUR ---
CCU KEN MANCERA REQUESTED I NOT DISTURB PT. HE IS SLEEPING AND SHE WILL CHECK WITH FAMILY AND SEE IF THEY WOULD LIKE CUSTOMER ADVISOR SPECIALIST SVRYAN. WILL FOLLOW
--- NOTE | 2021-09-17 13:30 | NUR ---
ATTEMPTED TO CONTACT GIL AT [facility] VIA CELL PHONE, NO ANSWER.
--- NOTE | 2021-09-17 14:30 | NUR ---
PATIENT RESTING COMFORTABLY IN BED AT THIS TIME WITH HIS AT THE BEDSIDE. CASE MANAGEMENT STAFF ARE WORKING ON PLAN OF CARE WITH TRYING TO ARRANGE DISCHARGE. WILL CONTINUE TO CLOSELY MONITOR.
--- NOTE | 2021-09-17 16:30 | NUR ---
, DAUGHTER, AND HOUSE MOVER HELPER AT BEDSIDE TO DISCUSS PLAN OF CARE AND PLACEMENT.
--- NOTE | 2021-09-17 17:01 | NUR ---
SPOKE WITH GIL FROM [facility], PATIENT COULD BE ACCEPTED INTO THEIR HAND SPRAY OPERATOR CARE PROGRAM ON HOSPICE, BUT WOULD HAVE TO PAY OUT OF POCKET. PAYMENT IS [phone] PER DAY. SPOKE WITH [facility], THEY ARE NOT ABLE TO PROVIDE 24 HR CAREGIVING AT THIS TIME. THEY DO HAVE A FEW VOLUNTEER WHO ARE ABLE TO ASSIST WITH MEALS AND OTHER SMALL TASKS. OVER TO THE ROOM TO SPEAK WITH PATIENT KRISTIAN AND DAUGHTER WILMAN. OPTION DISCUSSED FOR HAND SPRAY OPERATOR PLACEMENT VS HOSPICE SERVICES. PER PATIENTS AND GIL AT [facility] AN RN FROM HOSPICE WILL BE REACHING OUT TO THE PATIENT TO DISCUSS FURTHER HOSPICE OPTIONS. DISCUSSED POSSIBLE TRANSFER TO A HOSPICE HOUSE OR ADULT FOSTER CARE IN THE [place] WHICH IS CLOSER IN LOCATION TO THE PATIENT DAUGHTER. ADVISED THE FAMILY TO TAKE THE EVENING TO CONSIDER THEIR OPTIONS AND SPEAK WITH THE RN FROM HOSPICE. CASE MANAGEMENT TO FOLLOW UP WITH FAMILY IN THE MORNING.
--- NOTE | 2021-09-17 19:38 | NUR ---
SHIFT REPORT COMPLETE, ROUNDING IN PT ROOM FOR V/S, ASSESSMENT AND ADMIMISTRATION OF LOPRESSOR PER ORDERS.
--- NOTE | 2021-09-17 21:50 | NUR ---
CALLED TO REPORT PT PAIN UNCONTROLLED AT RIGHT SHOULDER, AND GENERALIZED, OXYCODONE FREQUENCY INCREASED.
--- NOTE | 2021-09-17 22:46 | NUR ---
pt repostioned oxycodone adminstered prn for 10/10 pain at right shoulder.
--- NOTE | 2021-09-17 23:50 | NUR ---
PT REMOVED OXYGEN N.C., 88%ON ROOM AIR, OXYGEN REPLACED, 99% OXYGEN SATURATION AT THIS TIME.
--- NOTE | 2021-09-17 23:52 | NUR ---
PT REPORTS PAIN 10/10, REPOSITIONED, PT NOTED TO BE HOLDING RIGHT ARM.
--- NOTE | 2021-09-18 00:30 | NUR ---
NOTED THAT PT LEFT WRIST IV IS LEAKING, BRAYAN RN PROOF PLATE MAKER INTO ROOM TO ATTEMPT TO START NEW IV.
--- NOTE | 2021-09-18 00:50 | NUR ---
IV ATTEMPT X 4 UNSUCCESSFUL
--- NOTE | 2021-09-18 01:29 | NUR ---
PT RESTING QUIETLY IN BED, EYES CLOSED, NO DISTRESS NOTED, SLEEPING, ALERT TO TOUCH, FOR SCHEDULED LOPRESSOR. VANCO INFUSING
--- NOTE | 2021-09-18 02:49 | NUR ---
PT RESTLESS, PULLING OFF MONITOR LEADS, GOWN AND OXYGEN N.C., THIS RN INTO ROOM PT REPORTS "HIGHEST PAIN" PT ADMINISTERED 5MG PO OXYCODONE PRN AT THIS TIME. MONITOR LEADS REPLACED, OXYGEN REPLACED, ABX COMPLETE, PT S/L. PT COOPERATIVE WITH CARE.
--- NOTE | 2021-09-18 05:29 | NUR ---
PT. PICHARDO EMPTIED. ROOM TIDIED. TRASH CANS EMPTIED. CALL LIGHT LEFT WITHIN REACH. BED ALARM SET.
--- NOTE | 2021-09-18 06:16 | NUR ---
PT HAS BEEN ABLE TO SLEEP THIS SECOND HALF OF SHIFT, LESS RESTLESS AND MOANING AND CLUTCHING AT RIGHT SHOULDER. HE HAS PRODUCED QUANTITY SUFFICIENT URINE OUT. REPOSITIONED Q 2 HOURS AND PRN WHEN RESTLESS. PT HAS BEEN COOPERATIVE WITH CARE, ONLY ORIENTED TO SELF OVER SHIFT, HE REQUIRES FREQUENT REORIENTATION TO PLACE AND TIME, AND STAFF.
--- NOTE | 2021-09-18 08:00 | NUR ---
CCU transfer. Tele monitor on. Martinez. 2L O2. Pt is sleepy but moans frequently. Will give Tylenol. Not due for Oxi just yet.
--- NOTE | 2021-09-18 08:45 | NUR ---
PATIENT RESTING IN BED. ORIENTED TO SELF ONLY. TOOK AM PO MEDS WITHOUT DIFFICULTY. DROWSY BUT EASY TO ARROUSE. RATES PAIN 10/10 TO NECK/BACK. PICHARDO DRAINING YELLOW URINE. HEART RATE 100-120'S AND AFIB. ON 4LNC. VS STABLE. REPORT GIVEN AND CARE TRANSFERED TO [facility] ROGERSDENTAL HYGIENE INSTRUCTOR ROOM 108. ALL BELONGINGS SENT WITH TIFFANI.
--- NOTE | 2021-09-18 09:47 | NUR ---
PATIENT IN BED RESTING WITH EYES CLOSED. VITALS AND I&O'S CHARTED. BED ALARM ON. CALL LIGHT IN REACH. NO FURTHER NEEDS AT THIS TIME.
--- NOTE | 2021-09-18 10:10 | NUR ---
R AC IV infiltrated. New one started in FA.
--- NOTE | 2021-09-18 10:57 | NUR ---
Daughter and daughter in law arrived. Ericka was notified via voicemail. Family requests to speak to her about discharge/hospice plan.
--- NOTE | 2021-09-18 13:40 | NUR ---
Metoprolol held d/t low BP (93/59, KJ=[id number]).
--- NOTE | 2021-09-18 14:20 | NUR ---
PATIENT IN BED RESTING WITH EYES CLOSED. VITALS AND I&O'S CHARTED. BLOOD PRESSURE LOW, RN NOTIFIED. CALL LIGHT IN REACH. BED ALARM ON. NO FURTHER NEEDS AT THIS TIME.
--- NOTE | 2021-09-18 14:40 | NUR ---
Pt's daughter was concerned she couldn't wake Pt up. He'd usually hold her hand, but this time he was not doing it. He was very hard to wake up. Upon examination Pt was able to gently squeeze RN's hand. Pt received Tylenol about an hour ago, so his sleepiness could be cause by medication. Will continue to monitor.
--- NOTE | 2021-09-18 14:47 | NUR ---
Called and spoke with pt's , Mariana. Discussed options of [facility], home with hospice. Reviewed why he cannot go to a SNF as a therapy pt as he is limited respones and cannot complete PT. agrees to Hospice, wants placement to an [facility] in [place], [place], or [place]. Discussed I have placed two calls to the [facility] in [place] and I have not received a reply. Let her know I checked with [facility] in [place] and [facility] has a bed open. I will also check in [place]. These would be out of pocket. states understanding and states she would like placement and hospice. She is going to call her daughter and discuss. I will send referral to Hospice in [place] as they will cover [place] or [place] depending on where he can be placed. Will also send chart to [facility] to hold the bed if they will accept him.
--- NOTE | 2021-09-18 15:15 | NUR ---
Dr Srinivasan made aware Pt did not want to be resuscitated. Daughter mentioned Dad stated that when he was more alert (In August). Full Code changed to DNR.
--- NOTE | 2021-09-18 16:04 | NUR ---
Spoke with daughter and Savita SOLER. They and mom would like placement to an [facility]. Daughter again stating they cannot take pt home. Let them know I have not received a call from [facility]. Spoke with Dr. Srinivasan and took her to the room to meet Sujey and Savita. Sujey was on the phone with mom and they all confirmed pt should be a DNR. will complete. I contact [facility] in [place] and they cannot take any Hospice patients at this time. I contacted [facility] and was given the phone number for [facility] [phone]. I was able to leave a message asking for a bed for a pt going onto hospice. Attempted to contact [facility] in [place], but left a message.
--- NOTE | 2021-09-18 16:50 | NUR ---
Pt c/o severe heartburn. Dr Srinivasan made aware and ordered another dose of Protonix. She also switched it to PO form since Pt is tolerating Po well.
--- NOTE | 2021-09-18 18:30 | NUR ---
Pt was found naked with tele leads pulled off. It was reapplied and gown was put back on. Pt was moaning a lot. Oxi 5 mg given. BP checked prior to administration. It was WNL.
--- NOTE | 2021-09-18 19:32 | NUR ---
RECEIVED REPORT FROM DAY SHIFT RN. PATIENT IS RESTING IN BED WIWTH EYES CLOSED, RR19. CALL LIGHT IN REACH.
--- NOTE | 2021-09-18 20:15 | NUR ---
PATIENT ASSESMENT COMPLETED. PATIENT REPOSITIONED IN BED. VITALS TAKEN AND RECORDED. PATIENT REMAINS ON 4L VIA NC. PATIENTS PICHARDO EMPTIED, AND INTAKE AND OUTPUT RECORED. PATIENTS PM MEDSD GIVEN PER ORDER. PRN TYLENOL GIVEN PER ORDER FOR PAIN. PATIENTS MEDS GIVEN IN APLPESAUCE NO S/SX OF ASP NOTED. PATIENT PROVIDED WITH SIPS OF WATER. PATIENT DENIES ANY NEEDS. CALL LIGHT IN REACH. HEEL PROTECTORS IN PLACE. LEGS ELEVATED ON PILLOWS. BED ALARM ON FOR SAFETY.
--- NOTE | 2021-09-18 22:18 | NUR ---
PATIENT REPOSITIONED IN BED. PATIENT DENIES ANY NEEDS. CALL LIGHT IN REACH. BED ALARM ON FOR SAFETY.
--- NOTE | 2021-09-19 00:18 | NUR ---
PATIENT SCHEDULED ABX INFUSING PER ORDER. PATIENT REPOSITIONED IN BED. PATIENT DENIES ANY PAIN. PICHARDO DRAINING CONCENTRATED YELLOW URINE. NO FURTHER NEEDS NOTED. CALL LIGHT IN REACH. BED ALARM ON FOR SAFETY.
--- NOTE | 2021-09-19 01:46 | NUR ---
PATIENT IS RESTING IN BED WITH EYES CLSOED, RR 16. CALL LIGHT IN RECH. BED ALARM ON FOR SAFETY.
--- NOTE | 2021-09-19 03:32 | NUR ---
VITALS TAKEN AND RECORDED. PICHARDO EMPTIED AND IS DRAINING DARK YELLOW URINE. MEDS PER ORDER IN APPLESAUCE. PATIENT DENIES ANY PAIN. PATIENT REPOSITIONED IN BED. SIPS OF WATER PROVIDED. NO FURTHER NEEDS NOTED. CALL LIGHT IN REACH. BED ALARM ON FOR SAFETY.
--- NOTE | 2021-09-19 04:30 | NUR ---
PATIENT RESTLESS IN BED AND CRYING OUT. PATIENT REPOSITIONED IN BED. PATIENT GIVEN PRN PAIN MEDICATION PER ORDER. PATIENT PROVIDED WITH SIPS OF WATER. NO FURTHER NEEDS NOTED. CALL LIGHT IN REACH.
--- NOTE | 2021-09-19 05:45 | NUR ---
VITALS TAKEN AND RECORDED. PICHARDO EMPTIED AND PICHARDO CARE COMPLETED. INTAKE AND OUTPUT RECORDED. PATIENT DENIES ANY PAIN. NO NEEDS NOTED. CALL LIGHT IN REACH. BED ALARM ON FOR SAFETY.
--- NOTE | 2021-09-19 07:10 | NUR ---
Bedside report received from NICA RN. Pt is sleeping supine. 4L of O2 - NC adjusted (Pt pulls it). Pt seems comfortable. Tele shows Afib, with HR of 72-75.
--- NOTE | 2021-09-19 08:00 | NUR ---
Was able to contact Kami Cai's Rn at [facility]. She states they do have a bed open and asked I send the chart. Discussed pt will need hospice and they have a slot to admit this afternoon, if there is any possibilty they could make this work. She will call me back.
--- NOTE | 2021-09-19 09:00 | NUR ---
Received a call from Sonja at Hospice. Orders are in order, they are unable to admit today, but can do so tomorrow AM or PM. Let her know I believe this pt will go to [facility], most likely tomorrow. She asks I call her when arrangements are complete.
--- NOTE | 2021-09-19 09:25 | NUR ---
Pt is sleeping in semi fowlers position. No signs of distress. O2 at 5L. Foely. Bed alarm on.
--- NOTE | 2021-09-19 11:00 | NUR ---
Notified by Kami they will accept this pt tomorrow. She will call Hospice and complete arrangements for when the bed will be delivered and when pt can be admitted. Most like it will be in the afternoon. Family updated and plan on returning to [place] this evening and will meet the pt in [place] tomorrow. They request pts oral meds to be stopped and only cont. on comfort meds. They have discussed this with friend that works in medical. Let them know I will pass onto Dr. Srinivasan.
--- NOTE | 2021-09-19 11:12 | NUR ---
Pt's Protonix was pulled out of Pyxis by NOC RN. No Protonix was given by day RN, assuming it was given by NOC RN.
--- NOTE | 2021-09-19 13:11 | NUR ---
Daughter and visiting. Pt remains asleep, appears comfortable. O2 at 4L. [place] in place.
[2021-09-19] MEDS ORDERED: OXYCODONE HCL5 MG PO (13:52)
[2021-09-19] MEDS ORDERED: FENTANYL1 EAC4 TD (13:52)
[2021-09-19] MEDS ORDERED: LIDOCAINE PAIN1 EACH TD (13:53)
--- NOTE | 2021-09-19 14:00 | NUR ---
Notified by Kami they would like pt to transport there at 0930 tomorrow. EMS scheduled. [facility] and cancelled pt hematology appt for the 17 at family request.
--- NOTE | 2021-09-19 15:07 | NUR ---
Family left. They went to check assisted living facility that offers inpatient hospice. Pt woke up for a moment when they said goodbye. They will be back later.
--- NOTE | 2021-09-19 15:46 | NUR ---
Called family to update time is set for transport. They are on their way to [place] to sign papers for hospice. Updated I was able to cancel the Hematology appt. They will return to the hospital today, then go home to [place] for the night. They deny futher needs.
--- NOTE | 2021-09-19 17:23 | NUR ---
RT COLLECTED RAPID COVID 19, RSV, AND FLU SWAB PER DR REQUEST USING IN HOUSE LAB WITH NO COMPLICATIONS AT THIS TIME.
--- NOTE | 2021-09-19 17:39 | NUR ---
face sheet, orders, rx, o2 order faxed to [facility].
--- NOTE | 2021-09-19 18:42 | NUR ---
Pt's HR went up to 130. It did not sustain, but remained above 100. Dr Srinivasan made aware ad ordered Tylenol supp as Pt is not able to take oral pills at this moment d/t somnolence.
--- NOTE | 2021-09-19 19:10 | NUR ---
bedside report from Geovanna RN, pt somulent, hector drainin wnl, pt resp even, tele on - to dc per dr. hernandez - corry fib, rvr, pt transisioning to hospice tomorrow dnr/d[facility]. 4l nc o2, call light in reach.
--- NOTE | 2021-09-19 20:27 | NUR ---
pt in room 108 - transfered to new room via bed 123 due to fbc needing expansion. pt confused, pulling on young cath that is draining well. heart irregular tele dc per dr hernandez - pt dnr/i plan for hospice tomorrow at [facility]. fentanyl patch in place, call light in reach - pt not responding to questions appropriate - restless.
--- NOTE | 2021-09-19 22:00 | NUR ---
IN TO GET VS, PICHARDO CARE DONE, EMPTIED PICHARDO AT THIS TIME, BED ALARM ACTIVE
--- NOTE | 2021-09-19 22:07 | NUR ---
po meds given with pudding, hob up and pt able to swallow well. po pain meds given for generalized restlessness and facial grimiace, turned to left side.
--- NOTE | 2021-09-20 04:04 | NUR ---
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 po oxy given for pain - facial grimace. heels floated.
--- NOTE | 2021-09-20 07:38 | NUR ---
REPORT RECIEVED FROM NIGHT RN - PLAN OF CARE REVIEWED.
--- NOTE | 2021-09-20 08:43 | NUR ---
RN IN ROOM TO ASSESS PT AND ADMINISTER SCHEDULED MEDICATIONS. PT MOANING IN BED UPON ENTRY. PT WAKES MINIMALLY WITH EYES OPEN TO SWALLOW ORAL PAIN MED WITH SIPS OF WATER/PUDDING. MOANS IN RESPONSE TO ALL QUESTIONS. IV DC'D FOR DISCHARGE TO FACILITY. PT REPOSISTIONED IN BED. O2 SWITCHED FROM NC TO OXYMASK PT IS MOUTH BREATHING AND SP02 WAS 71% - RESOLVED TO 84% ON 4L. MD IN ROOM TO ROUND ON PT - AWARE OF PT HR AND PAIN, MEDS GIVEN ACCORDINGLY. PT READY FOR DC TO HOSPICE.
--- NOTE | 2021-09-20 09:35 | NUR ---
Pt left for [facility] with EMS transport.
--- NOTE | 2021-09-20 10:43 | NUR ---
Covid test, dc summary faxed to [facility]. DC summary faxed to Sonja at Hospice. Snoja called to confirm when Fentanyl patch and young placed. Infor given.
== END 2021-09-20 09:38 | disposition home or self-care (01) | DRG 871 ==
LOC: CCU 14:32 → MS 09-18 08:45
PROVIDERS: ADMIT Internal Medicine; ATTEND Internal Medicine
DX: A41.9 Sepsis, unspecified organism (principal); I50.43 Acute on chronic combined systolic (congestive) and diastolic (congestive) heart failure; I48.20 Chronic atrial fibrillation, unspecified; C78.02 Secondary malignant neoplasm of left lung; C79.89 Secondary malignant neoplasm of other specified sites; D68.4 Acquired coagulation factor deficiency; R65.20 Severe sepsis without septic shock; Z20.822 Contact with and (suspected) exposure to COVID-19; I11.0 Hypertensive heart disease with heart failure; R33.9 Retention of urine, unspecified; N40.0 Benign prostatic hyperplasia without lower urinary tract symptoms; M89.58 Osteolysis, other site; M89.5 Osteolysis; G89.29 Other chronic pain; R16.0 Hepatomegaly, not elsewhere classified; I25.10 Atherosclerotic heart disease of native coronary artery without angina pectoris; K21.9 Gastro-esophageal reflux disease without esophagitis; M54.2 Cervicalgia; K80.20 Calculus of gallbladder without cholecystitis without obstruction; D64.9 Anemia, unspecified; D72.829 Elevated white blood cell count, unspecified; Z95.5 Presence of coronary angioplasty implant and graft; Z79.82 Long term (current) use of aspirin; Z79.899 Other long term (current) drug therapy
CPT/HCPCS: 36415; 36430; 70491; 71260; 74177; 76705; 80048; 80053; 80162; 80202; 83735; 83880; 84100; 85018; 85025; 85610; 85730; 86850; 86900; 86901; 86922; 94667; 94668; 94760; A9270; C9113; J0692; J1160; J1940; J2405; J3370; J3430; J3475; J7050; P9016; Q9967; U0003